=== PATIENT | female | born 1975 | race Caucasian/White ===

== ENCOUNTER → 2020-02-06 | Outpatient (CLI) | payer BC, MEDICARE ==
[2014-03-18 21:40] VITALS: BP 146/77
--- NOTE | 2020-02-06 14:11 | RAD ---
EXAMINATION: CT ABDOMEN PELVIS WO CONTRAST CLINICAL HISTORY: Reason: LEFT FLANK AND LEFT SIDED ABDOMINAL PAIN HX: LITHOTRIPSY, HYSTERECTOMY, CHOLECYSTECTOMY, APPENDECTOMY / History: TECHNIQUE: Non-IV contrast imaging of the abdomen and pelvis was performed using standard technique, scanning from just above the dome of the diaphragm to the symphysis pubis. Unenhanced imaging is limited for the evaluation of some intra-abdominal and pelvic pathology. Contrast: IV: None CT Dose Reduction Employed: One or more of the following individualized dose reduction techniques were utilized for this examination: 1. Automated exposure control 2. Adjustment of the mA and/or kV according to patient size 3. Use of iterative reconstruction technique. COMPARISON: None. FINDINGS: Lower thorax: Unremarkable. Liver: Unremarkable. Biliary: S/p cholecystectomy. Spleen: No splenomegaly. Pancreas: Unremarkable. Adrenals: No mass. Kidneys: No calculus, hydronephrosis or finding to suggest a cyst or mass in the unenhanced kidneys. GI Tract: Moderate stool throughout the colon. No bowel dilation. Appendectomy. Lymph Nodes: No lymphadenopathy. Mesentery/peritoneum: No ascites. Retroperitoneum: No mass. Vasculature: Minimal arterial atherosclerotic disease without aneurysm. Pelvis: No mass or ascites. Hysterectomy. Bones/Soft Tissues: No acute abnormality. IMPRESSION: Moderate colonic stool, correlate for constipation. No urinary calculi visualized or evidence of obstructive uropathy. Electronically signed by: Da Javier DO (02/06/2020 2:08 PM) [id number]
== END | disposition home or self-care (01) ==
LOC: CT 12:42
PROVIDERS: ATTEND Physician Assistant Medical
DX: R10.12 Left upper quadrant pain (principal); I70.90 Unspecified atherosclerosis; Z90.49 Acquired absence of other specified parts of digestive tract; Z90.89 Acquired absence of other organs
CPT/HCPCS: 74176